=== PATIENT | male | born 1995 | race Caucasian/White ===

== ENCOUNTER 2017-08-18 22:52 | Emergency (ER) | payer SELFPAY ==
[~2017-08-18] VITALS: Ht 170.2 cm; Wt 127.3 kg
[2017-08-18] MEDS ORDERED: ACETAMINOPHEN 500 MG TABLET PO ONE (23:45)
[2017-08-18] MEDS ORDERED: CEPHALEXIN MONOHYDRATE 500 MG CAPSULE PO ONE (23:45)
[2017-08-18] MEDS ORDERED: DiphenhydrAMINE HCL 25 MG CAPSULE PO ONE (23:45)
[2017-08-19 00:10] VITALS: BP 129/80
== END 2017-08-19 00:19 | disposition home or self-care (01) ==
LOC: EMS 22:54
DX: J02.9 Acute pharyngitis, unspecified (principal); R21 Rash and other nonspecific skin eruption
CPT/HCPCS: 99284